=== PATIENT | female | born 1975 | race Caucasian/White ===

== ENCOUNTER 2017-05-14 14:05 | Emergency (ER) | payer OTHER ==
[~2017-05-14] VITALS: Ht 157.5 cm; Wt 85.0 kg
[2017-05-14 14:32] VITALS: BP 118/91
== END 2017-05-14 15:20 | disposition home or self-care (01) ==
LOC: EME 14:05
DX: T65.891A Toxic effect of other specified substances, accidental (unintentional), initial encounter (principal)
CPT/HCPCS: 99281; 99283